=== PATIENT | female | born 1965 | race Two or more races ===

== ENCOUNTER → 2024-06-19 | Emergency (ER) | payer OTHER ==
[~2024-06-19] VITALS: Ht 149.9 cm; Wt 68.9 kg
[~2024-06-19] MED LIST: BUTALB-ACETAMI1 EACH; GABAPENTIN400 MG; KETO10TA2 PO; KETOROLAC TROMETHAMINE 60 MG VIAL IM ONE; KETOROLAC TROMETHAMINE 60 MG VIAL IM STA; MOTRIN800 MG PO; ORPHENADRINE CITRATE 30 MG/ML AMPUL IM STA; ORPHENADRINE CITRATE 30 MG/ML AMPUL ONE
== END | disposition home or self-care (01) ==
LOC: ER 07:48
DX: M62.830 Muscle spasm of back (principal); M25.561 Pain in right knee

== ENCOUNTER → 2024-12-09 | Outpatient (CLI) | payer OTHER ==
[~2024-12-09] MED LIST changes: -KETOROLAC TROMETHAMINE 60 MG VIAL IM ONE; -KETOROLAC TROMETHAMINE 60 MG VIAL IM STA; -ORPHENADRINE CITRATE 30 MG/ML AMPUL IM STA; -ORPHENADRINE CITRATE 30 MG/ML AMPUL ONE
== END | disposition home or self-care (01) ==
LOC: MAMO-SONO 15:12
DX: N63 Unspecified lump in breast (principal)